=== PATIENT | male | born 1945 | race Caucasian/White ===

== ENCOUNTER 2020-12-22 13:52 | Emergency (ER) | payer MEDICARE, OTHER ==
[2020-12-22 14:07] VITALS: BP 123/62; PULSE 68
[2020-12-22] MEDS ORDERED: Sodium Chloride 0.9% 10 ML Syringe FLUSH PRN (14:25)
--- NOTE | 2020-12-22 14:37 | EDM.PDOC ---
ED HPI GENERAL MEDICAL PROBLEM - General Chief Complaint: General Stated Complaint: NEAR SYNCOPE Time Seen by Provider: 12/22/20 14:15 Source of Information: Reports: Patient, Family History Limitations: Reports: No Limitations - History of Present Illness INITIAL COMMENTS - FREE TEXT/NARRATIVE: 75 YO WM PRESENTS TO ER AFTER EPISODE OF NEAR SYNCOPE WHILE EXERTING HIMSELF TRYING TO A COW. PT REPORTS HE BECAME LIGHTHEADED AND ALMOST PASSED OUT. PT STATES HE HAD ASSOCIATED NAUSEA WITHOUT VOMITING AND MILD DIAPHORESIS. PT DENIES CHEST PAIN OR SHORTNESS OF BREATH. PT REPORTS A MILD HEADACHE AFTER EVENT BUT STATES THOSE SYMPTOMS HAVE RESOLVED. PT DENIES ANY RECENT ILLNESSES. NO FEVER/CHILLS, NO KNOWN COVID EXPOSURES. PT WITH PMH OF HYPERTENSION AND HAS RECENTLY INCREASED HIS DOSE OF MEDICATION. PT DENIES WEAKNESS, NO ATAXIA, NO VISION CHANGES, AND NO SLURRED SPEECH. PT ABLE TO AMBULATE WITHOUT DIFFICULTY. Onset: Today Duration: Minutes: Location: Reports: Generalized Severity: Moderate Improves with: Reports: Rest Context: Reports: Activity Associated Symptoms: Reports: Diaphoresis, Nausea/Vomiting, Syncope. Denies: Confusion, Chest Pain, Cough, Fever/Chills, Loss of Appetite, Malaise, Rash, Seizure, Shortness of Breath, Weakness Treatments LAST TURNER: Reports: See EMS Report - Related Data Allergies Allergy/AdvReac Type Severity Reaction Status Date / Time No Known Allergies Allergy Verified 12/22/20 14:03 Home Meds: Home Meds Brinzolamide/Brimonidine Tart [Simbrinza 1%-0.2% Eye Drops] 1 drop EYERT BID 09/11/15 [History] Bromfenac Sodium [Prolensa] 1 drop EYERT DAILY 12/22/20 [History] L.acidoph,Paracasei, B.lactis [Probiotic] 1 cap PO DAILY 12/22/20 [History] Multivitamin [Multivitamins] 1 tab PO DAILY 12/22/20 [History] Rosuvastatin Calcium 20 mg PO BEDTIME 12/22/20 [History] amLODIPine Besylate/Benazepril [Amlodipine-Benazepril 10-20 mg] 1 cap PO DAILY 12/22/20 [History] timoloL maleate [Timoptic 0.5% Ophth Soln] 1 drop EYERT BID 12/22/20 [History] Past Medical History HEENT History: Reports: Cataract Cardiovascular History: Reports: High Cholesterol Gastrointestinal History: Reports: Hemorrhoids Genitourinary History: Reports: BPH, Other (See Below) Other Genitourinary History: ELEVATED psa Musculoskeletal History: Reports: RA, Other (See Below) Other Musculoskeletal History: LEFT ROTATOR CUFF - Past Surgical History HEENT Surgical History: Reports: Cataract Surgery, Detached Retina, Eye Surgery GI Surgical History: Reports: Hernia Repair/Other ED ROS GENERAL - Review of Systems Review Of Systems: See Below Constitutional: Reports: No Symptoms HEENT: Reports: No Symptoms Respiratory: Reports: No Symptoms Cardiovascular: Reports: Blood Pressure Problem, Lightheadedness, Syncope Endocrine: Reports: No Symptoms GI/Abdominal: Reports: Nausea : Reports: No Symptoms Musculoskeletal: Reports: No Symptoms Skin: Reports: No Symptoms Neurological: Reports: Dizziness Psychiatric: Reports: No Symptoms Hematologic/Lymphatic: Reports: No Symptoms Immunologic: Reports: No Symptoms ED EXAM, GENERAL - Physical Exam Exam: See Below Exam Limited By: No Limitations General Appearance: Alert, WD/WN, No Apparent Distress Eye Exam: Bilateral Eye: EOMI, PERRL Head: Atraumatic, Normocephalic Neck: Normal Inspection, Supple, Non-Tender, Full Range of Motion Respiratory/Chest: No Respiratory Distress, Lungs Clear, Normal Breath Sounds, No Accessory Muscle Use, Chest Non-Tender Cardiovascular: Normal Peripheral Pulses, Regular Rate, Rhythm, No Edema, No Gallop, No JVD, No Murmur, No Rub GI/Abdominal: Normal Bowel Sounds, Soft, Non-Tender, No Organomegaly, No Distention, No Abnormal Bruit, No Mass Back Exam: Normal Inspection, Full Range of Motion, NT Extremities: Normal Inspection, Normal Range of Motion, Non-Tender, Normal Capillary Refill, No Pedal Edema Neurological: Alert, Oriented, CN II-XII Intact, Normal Cognition, Normal Gait, No Motor/Sensory Deficits Psychiatric: Normal Affect, Normal Mood Skin Exam: Warm, Dry, Intact, Normal Color, No Rash Lymphatic: No Adenopathy #1 Interpretation EKG Date: 12/22/20 Time: 14:22 Rhythm: NSR Rate (Beats/Min): 69 [place]: Normal P-Wave: Present QRS: Normal ST-T: Normal QT: Normal Course - Vital Signs Last Recorded V/S: Last Vital Signs Temp 97.9 F 12/22/20 13:58 Pulse 68 12/22/20 13:58 Resp 15 12/22/20 13:58 BP 123/62 12/22/20 13:58 Pulse Ox 98 12/22/20 13:58 - Orders/Labs/Meds Orders: Active Orders 24 hr Category Date Time Status Cardiac Monitoring [RC] . DIRECTED Care 12/22/20 14:25 Active EKG Documentation Completion [RC] ASDIRECTED Care 12/22/20 14:06 Active Peripheral IV Care [RC] . DIRECTED Care 12/22/20 14:26 Active Sodium Chloride 0.9% [Saline Flush] Med 12/22/20 14:25 Active 10 ml FLUSH Q8HR PRN Peripheral IV Insertion Adult [OM.PC] Routine Oth 12/22/20 14:25 Ordered EKG 12 Lead [EK] Stat Ther 12/22/20 14:06 Ordered Medication Orders Sodium Chloride (Sodium Chloride 0.9% 10 Ml Syringe) 10 ml FLUSH Q8HR PRN PRN Reason: keep vein open Labs: Laboratory Tests 12/22/20 12/22/20 Range/Units 14:15 14:15 WBC 9.13 (5.00-10.00) 10^3/uL RBC 4.11 L (4.50-6.00) 10^6/uL Hgb 13.2 (13.0-17.0) g/dL Hct 38.6 L (40.0-52.0) % MCV 93.9 H (82.0-92.0) fL MCH 32.1 H (27.0-31.0) pg MCHC 34.2 (32.0-36.0) g/dL RDW 13.0 (11.5-14.5) % Plt Count 303 (150-400) 10^3/uL MPV 9.6 (7.4-10.4) fL Immature Gran % (Auto) 0.1 (0.0-5.0) % Neut % (Auto) 77.9 H (50.0-70.0) % Lymph % (Auto) 13.0 L (20.0-40.0) % [place] % (Auto) 7.4 (2.0-8.0) % Eos % (Auto) 1.2 (1.0-3.0) % Baso % (Auto) 0.4 (0.0-1.0) % Neut # (Auto) 7.10 H (2.50-7.00) 10^3/uL Lymph # (Auto) 1.19 (1.00-4.00) 10^3/uL [place] # (Auto) 0.68 (0.10-0.80) 10^3/uL Eos # (Auto) 0.11 (0.10-0.30) 10^3/uL Baso # (Auto) 0.04 (0.00-0.10) 10^3/uL Immature Gran # (Auto) 0.01 (0.00-0.50) 10^3/uL Sodium 141 (136-145) mmol/L Potassium 4.3 (3.5-5.1) mmol/L Chloride 105 (98-107) mmol/L Carbon Dioxide 23.8 (21.0-32.0) mmol/L Anion Gap 16.5 H (5-15) mmol/L BUN 22 H (7-18) mg/dL Creatinine 0.89 (0.51-1.17) mg/dL Est Cr Clr Drug Dosing 65.55 mL/min Estimated GFR (MDRD) > 60 mL/min Glucose 105 (70-140) mg/dL Calcium 9.1 (8.7-10.3) mg/dL Total Bilirubin 0.5 (0.2-1.0) mg/dL AST 21 (15-37) U/L ALT 28 (14-63) U/L Alkaline Phosphatase 63 (46-116) U/L Creatine Kinase 140 (26-276) U/L CK-MB (CK-2) 1.82 (0.00-3.60) ng/mL Troponin I < 0.017 (0.000-0.056) ng/mL Total Protein 7.3 (6.4-8.2) g/dL Albumin 3.75 (3.40-5.00) g/dL Meds: Medications Generic Name Dose Route Start Last Admin Trade Name Freq PRN Reason Stop Dose Admin Sodium Chloride 10 ml 12/22/20 14:25 Sodium Chloride 0.9% 10 Ml Syringe FLUSH Q8HR PRN keep vein open - Radiology Interpretation Free Text/Narrative:: CXR- NAD - Re-Assessments/Exams Free Text/Narrative Re-Assessment/Exam: 12/22/20 15:22 PT REPORTS FEELING MUCH BETTER. PT WAS STANDING FOR 15 MINUTES WHILE I RECOMMENDED OBSERVATION TO HOSPITAL TO RULE OUT ISCHEMIA OR CARDIAC ARRHYTHMIA. PT REFUSED AND STATED HE UNDERSTANDS RISK OF OR DISABILITY IF HE LEAVES HOSPITAL WITHOUT ADDITIONAL EVALUATION. WAS PRESENT DURING CONVERSATION. PT REPORTS HE WILL FOLLOW UP WITH PCP FOR FURTHER EVALUATION AND TREATMENT THIS WEEK. PT IS ALERT AND ORIENTED AND REASONABLE IN HIS RESPONSE WITHOUT AND FOCAL NEURO DEFICITS. Departure - Departure Time of Disposition: 15:27 Disposition: Home, Self-Care 01 Condition: Good Clinical Impression: Near syncope - Discharge Information Instructions: Near-Syncope Referrals: Serafin Scherer PA-C [Primary Care Provider] - Forms: ED Department Discharge Additional Instructions: 1. DISCHARGE HOME AGAINST MEDICAL ADVICE 2. RECOMMEND FOLLOWING UP WITH PCP THIS WEEK FOR FURTHER EVALUATION AND TREATMENT 3. IF SYMPTOMS RETURN- PATIENT AGREES TO RETURN TO ER FOR FURTHER EVALUATION 4. AVOID EXERTION AND GETTING UP FROM SEATED POSITION TO QUICKLY. Sepsis Event Note (ED) - Evaluation Sepsis Screening Result: No Definite Risk - Focused Exam Vital Signs: Vital Signs Temp Pulse Resp BP Pulse Ox 12/22/20 13:58 97.9 F 68 15 123/62 98 - My Orders Last 24 Hours: My Active Orders 12/22/20 14:06 EKG Documentation Completion [RC] ASDIRECTED EKG 12 Lead [EK] Stat 12/22/20 14:25 Cardiac Monitoring [RC] . DIRECTED Sodium Chloride 0.9% [Saline Flush] 10 ml FLUSH Q8HR PRN Peripheral IV Insertion Adult [OM.PC] Routine 12/22/20 14:26 Peripheral IV Care [RC] . DIRECTED - Assessment/Plan Last 24 Hours: My Active Orders 12/22/20 14:06 EKG Documentation Completion [RC] ASDIRECTED EKG 12 Lead [EK] Stat 12/22/20 14:25 Cardiac Monitoring [RC] . DIRECTED Sodium Chloride 0.9% [Saline Flush] 10 ml FLUSH Q8HR PRN Peripheral IV Insertion Adult [OM.PC] Routine 12/22/20 14:26 Peripheral IV Care [RC] . DIRECTED Assessment:: 1. NEAR SYNCOPE-RESOLVED Plan: 1. DISCHARGE HOME AGAINST MEDICAL ADVICE 2. RECOMMEND FOLLOWING UP WITH PCP THIS WEEK FOR FURTHER EVALUATION AND TREATMENT 3. IF SYMPTOMS RETURN- PATIENT AGREES TO RETURN TO ER FOR FURTHER EVALUATION 4. AVOID EXERTION AND GETTING UP FROM SEATED POSITION TO QUICKLY.
--- NOTE | 2020-12-22 14:55 | CR ---
[id number] RAD/RAD Chest PA And Lateral EXAM: RAD Chest PA And Lateral INDICATION: NEAR SYNCOPAL EPISODE. COMPARISON: None. DISCUSSION: Cardiomediastinal silhouette is normal in size and contour. Lungs are clear. No pleural effusion or pneumothorax. IMPRESSION: Negative examination of the chest. Hubert Romo MD 12/22/20 [id number] Thank you for allowing us to participate in the care of your patient.
[2020-12-22 15:09] LABS: ANION GAP 16.5 mmol/L (5-15); CHLORIDE,CL 105 mmol/L (98-107); SODIUM,NA 141 mmol/L (136-145)
== END 2020-12-22 15:35 | disposition home or self-care (01) ==
LOC: KA.ED 13:52
DX: R55 Syncope and collapse (principal); E78.00 Pure hypercholesterolemia, unspecified; Z79.899 Other long term (current) drug therapy
CPT/HCPCS: 71046; 80053; 82550; 82553; 84484; 85025; 93005; 99284; 99284-25

== ENCOUNTER 2021-09-15 17:23 | Emergency (ER) | payer MEDICARE, OTHER ==
[2021-09-15 19:30] VITALS: BP 131/62; PULSE 65
== END 2021-09-15 19:45 | disposition home or self-care (01) ==
LOC: KA.ED 17:23
DX: S46.911A Strain of unspecified muscle, fascia and tendon at shoulder and upper arm level, right arm, initial encounter (principal); E78.00 Pure hypercholesterolemia, unspecified; I10 Essential (primary) hypertension; Z79.899 Other long term (current) drug therapy; W18.39XA Other fall on same level, initial encounter
CPT/HCPCS: 73030-RT; 99283; 99283-25